=== PATIENT | male | born 1940 | race Caucasian/White ===

== ENCOUNTER → 2017-12-15 | Outpatient (CLI) | payer MEDICARE | END | disposition home or self-care (01) | LOC: US 10:14 | DX: M79.662 Pain in left lower leg (principal) ==

== ENCOUNTER 2020-08-22 13:36 | Emergency (ER) | payer OTHER ==
[~2020-08-22] VITALS: Ht 175.2 cm; Wt 91.6 kg
== END 2020-08-22 15:39 | disposition home or self-care (01) ==
LOC: ED 13:36
DX: S20.20XA Contusion of thorax, unspecified, initial encounter (principal); Z88.0 Allergy status to penicillin; Z88.2 Allergy status to sulfonamides; Z88.8 Allergy status to other drugs, medicaments and biological substances; X58.XXXA Exposure to other specified factors, initial encounter; Y93.89 Activity, other specified; Y92.89 Other specified places as the place of occurrence of the external cause; Y99.8 Other external cause status